=== PATIENT | male | born 1965 | race African-American/Black ===

== ENCOUNTER 2018-03-02 22:55 | Emergency (ER) | payer MEDICAID ==
[~2018-03-02] VITALS: Ht 177.8 cm; Wt 118.0 kg
[~2018-03-02 22:55] MED LIST: ARIP20TA2 PO; PARO40TA PO
[2018-03-02 23:55] VITALS: BP 152/93
[2018-03-03 02:01] LABS: BASOPHILS % 1.1 % (0.0-2.0); EOSINOPHILS % 1.4 % (0.0-5.0); HEMATOCRIT. 36.6 % (42.0-52.0); HEMOGLOBIN. 12.6 g/dL (14.0-18.0); LYMPHOCYTES % 16.6 % (20.0-50.0); MEAN CORPUSCULAR HEMOGLOBIN 31.2 pg (28.0-32.0); MEAN CORPUSCULAR VOLUME 91.1 fL (80.0-94.0); MEAN PLATELET VOLUME 7.7 fl (7.4-10.4); MONOCYTES % 8.9 % (2.0-8.0); PLATELET 286 x1000/uL (130-400); RED BLOOD CELL COUNT 4.02 mill/uL (4.7-6.1); RED CELL DISTRIBUTION WIDTH 15.9 % (11.6-14.6)
[2018-03-03 02:07] LABS: CHLORIDE 101 mEq/L (98-107)
[2018-03-03 02:15] LABS: ETHANOL BLOOD < 10 mg/dL
[2018-03-03 03:18] LABS: *BENZODIAZEPINES SCREEN URINE NEGATIVE (NEGATIVE); *COCAINE SCREEN URINE PRESUMTIVE POSITIVE (NEGATIVE); METHADONE URINE SCREEN NEGATIVE (NEGATIVE)
[2018-03-03 03:19] LABS: *AMPHETAMINES SCREEN URINE PRESUMTIVE POSITIVE (NEGATIVE); *BARBITURATES SCREEN URINE NEGATIVE (NEGATIVE); CANNABINOID URINE SCREEN PRESUMTIVE POSITIVE (NEGATIVE); OPIATES URINE SCREEN NEGATIVE (NEGATIVE); PHENCYCLIDINE URINE SCREEN NEGATIVE (NEGATIVE)
== END 2018-03-03 06:00 | disposition left against medical advice (07) ==
LOC: ER 22:55
DX: F15.10 Other stimulant abuse, uncomplicated (principal); F14.10 Cocaine abuse, uncomplicated; F12.10 Cannabis abuse, uncomplicated; F45.9 Somatoform disorder, unspecified; F31.9 Bipolar disorder, unspecified; H40.9 Unspecified glaucoma; I10 Essential (primary) hypertension; F17.200 Nicotine dependence, unspecified, uncomplicated; Z59.0 Homelessness
CPT/HCPCS: 36415; 80048; 80305; 80307; 80329; 85025; 99284; G0482

== ENCOUNTER 2018-03-03 10:00 | Inpatient (IN) | payer MEDICAID ==
[~2018-03-03] VITALS: Ht 177.8 cm; Wt 118.0 kg
[2018-03-03] MEDS ORDERED: CEFTRIAXONE SODIUM 1 G/VIAL IM ONE (12:15)
[2018-03-03] MEDS ORDERED: SULFAMETHOXAZOLE/TRIMETHOPRIM 400/80MG TAB PO ONE (12:15)
[2018-03-03] MEDS ORDERED: IBUPROFEN 600MG TABLET PO ONE (12:15)
[2018-03-03] MEDS ORDERED: N PO NR ×2 (12:43)
[2018-03-03] MEDS ORDERED: SULFAMETHOXAZOLE/TRIMETHOPRIM 800/160MG TABLET PO NR (12:44)
[2018-03-03 16:31] LABS: BASOPHILS % 0.7 % (0.0-2.0); EOSINOPHILS % 1.5 % (0.0-5.0); HEMATOCRIT. 37.6 % (42.0-52.0); HEMOGLOBIN. 12.7 g/dL (14.0-18.0); LYMPHOCYTES % 15.2 % (20.0-50.0); MEAN CORPUSCULAR HEMOGLOBIN 31.1 pg (28.0-32.0); MEAN CORPUSCULAR VOLUME 91.6 fL (80.0-94.0); MEAN PLATELET VOLUME 8.5 fl (7.4-10.4); MONOCYTES % 9.1 % (2.0-8.0); NEUTROPHILS % 73.5 % (40.0-76.0); PLATELET 284 x1000/uL (130-400); RED CELL DISTRIBUTION WIDTH 15.5 % (11.6-14.6)
[2018-03-03 16:34] LABS: CHLORIDE 102 mEq/L (98-107)
[2018-03-03 16:38] LABS: INR 1.1; PARTIAL THROMBOPLASTIN TIME 28.5 sec (23.4-31.0); PROTHROMBIN TIME 10.6 sec (9.1-11.1)
[2018-03-03] MEDS ORDERED: ENOXAPARIN 120MG/0.8ML SYR SUBCUT ONE (16:45)
[2018-03-03 17:11] VITALS: BP 137/77
[2018-03-03] MEDS ORDERED: NA PHOS,M-B/NA PHOS,DI-BA ENEMA 118ML PR PRN (18:15)
[2018-03-03] MEDS ORDERED: ACETAMINOPHEN 650MG SUPP PR PRN (18:15)
[2018-03-03] MEDS ORDERED: ACETAMINOPHEN 650MG/20.3ML UDC GT PRN (18:15)
[2018-03-03] MEDS ORDERED: CLONIDINE 0.1MG TABLET PO PRN (18:15)
[2018-03-03] MEDS ORDERED: GUAIFENESIN 200MG/10ML SUGAR FREE UDC PO PRN (18:15)
[2018-03-03] MEDS ORDERED: ACETAMINOPHEN 325MG TABLET PO PRN (18:15)
[2018-03-03] MEDS ORDERED: MAGNESIUM/ALUMINUM HYDROXIDE/SIMETHICONE 30ML UDC PO PRN (18:15)
[2018-03-03] MEDS ORDERED: IPRATROPIUM/ALBUTEROL 0.5-3(2.5)MG/3ML NEB INH PRN (18:15)
[2018-03-03] MEDS ORDERED: DOCUSATE SODIUM 100MG CAPSULE PO PRN (18:15)
[2018-03-03] MEDS ORDERED: ONDANSETRON HCL 4MG/2ML INJ IV PRN (18:15)
[2018-03-03] MEDS ORDERED: HYDRALAZINE 20MG/ML VIAL IV PRN (18:15)
[2018-03-03] MEDS ORDERED: DIPHENHYDRAMINE 50MG/ML VIAL IV PRN (18:15)
[2018-03-03] MEDS ORDERED: HYDROCODONE/ACETAMINOPHEN 5/325MG TABLET PO PRN (18:15)
[2018-03-03] MEDS ORDERED: HYDRALAZINE 10 MG in SODIUM CHLORIDE 0.9% 49.5 ML IV PRN (19:00)
[2018-03-03] MEDS ORDERED: VANCOMYCIN 2,000 MG in DEXT 5% WATER 500 ML IV NR (20:30)
[2018-03-03] MEDS ORDERED: SODIUM CHLORIDE 0.9% INJ 3ML FLUSH IVF SCH (22:00)
[2018-03-04] MEDS ORDERED: APIXABAN 5 MG TABLET PO SCH (06:00)
[2018-03-11] MEDS ORDERED: APIXABAN 5 MG TABLET PO SCH (09:00)
== END 2018-03-03 19:15 | disposition left against medical advice (07) | DRG 197 ==
LOC: ER 10:26 → EDBEDREQ 13:27 → 6EST 16:47 → EDBEDREQ 16:47 → EDBEDREQTM 16:47 → ENRESERV 16:48
PROVIDERS: ADMIT Family Medicine; ATTEND Family Medicine
DX: I82.412 Acute embolism and thrombosis of left femoral vein (principal); F17.200 Nicotine dependence, unspecified, uncomplicated; F31.9 Bipolar disorder, unspecified; H40.9 Unspecified glaucoma; I10 Essential (primary) hypertension; Z79.899 Other long term (current) drug therapy
CPT/HCPCS: 36415; 71045; 80053; 85025; 85610; 85730; 86850; 86900; 87040; 93005; 93970; 96372; 99285; J0696; J1650; J3370; J7060

== ENCOUNTER 2018-03-04 05:15 | Inpatient (IN) | payer MEDICAID ==
[~2018-03-04] VITALS: Ht 172.7 cm; Wt 117.9 kg
[2018-03-04] MEDS ORDERED: ENOXAPARIN 100MG/ML SYR SUBCUT ONE (07:15)
[2018-03-04] MEDS ORDERED: WARFARIN SODIUM 5MG TABLET PO ONE (07:45)
[2018-03-04 08:22] LABS: BASOPHILS % 1.1 % (0.0-2.0); HEMATOCRIT. 35.2 % (42.0-52.0); HEMOGLOBIN. 11.9 g/dL (14.0-18.0); LYMPHOCYTES % 21.2 % (20.0-50.0); MEAN CORPUSCULAR HEMOGLOBIN 30.9 pg (28.0-32.0); MEAN CORPUSCULAR VOLUME 91.5 fL (80.0-94.0); MEAN PLATELET VOLUME 7.9 fl (7.4-10.4); MONOCYTES % 8.6 % (2.0-8.0); NEUTROPHILS % 67.1 % (40.0-76.0); PLATELET 256 x1000/uL (130-400); RED BLOOD CELL COUNT 3.85 mill/uL (4.7-6.1); RED CELL DISTRIBUTION WIDTH 15.7 % (11.6-14.6)
[2018-03-04 08:30] LABS: CHLORIDE 105 mEq/L (98-107)
[2018-03-04 08:32] LABS: INR 1.1; PROTHROMBIN TIME 10.6 sec (9.1-11.1)
[2018-03-04 10:09] LABS: CLARITY URINE CLEAR (CLEAR); COLOR URINE DARK YELLOW (YELLOW); KETONES URINE 1+ (NEGATIVE); LEUKOCYTE ESTERASE URINE NEGATIVE (NEGATIVE); NITRITE URINE NEGATIVE (NEGATIVE); OCCULT BLOOD URINE NEGATIVE (NEGATIVE); PH URINE 6.5 (4.5-8.0); PROTEIN URINE NEGATIVE (NEGATIVE); SPECIFIC GRAVITY URINE 1.024 (1.005-1.030)
[2018-03-04 15:35] VITALS: BP 134/89
[2018-03-04 15:39] VITALS: BP 134/89
[2018-03-04] MEDS ORDERED: IPRATROPIUM/ALBUTEROL 0.5-3(2.5)MG/3ML NEB INH PRN (17:00)
[2018-03-04] MEDS ORDERED: MAGNESIUM/ALUMINUM HYDROXIDE/SIMETHICONE 30ML UDC PO PRN (17:00)
[2018-03-04] MEDS ORDERED: ONDANSETRON HCL 4MG/2ML INJ IV PRN (17:00)
[2018-03-04] MEDS ORDERED: ACETAMINOPHEN 325MG TABLET PO PRN (17:00)
[2018-03-04] MEDS ORDERED: DOCUSATE SODIUM 100MG CAPSULE PO PRN (17:00)
[2018-03-04] MEDS ORDERED: CLONIDINE 0.1MG TABLET PO PRN (17:00)
[2018-03-04] MEDS: ENOXAPARIN 120MG/0.8ML SYR SUBCUT SCH (17:54)
[2018-03-04 20:00] VITALS: BP 114/70
[2018-03-04 20:47] LABS: CHLORIDE 107 mEq/L (98-107)
[2018-03-05] VITALS: BP 123/81
[2018-03-05 04:00] VITALS: BP 128/93
[2018-03-05] MEDS: ENOXAPARIN 120MG/0.8ML SYR SUBCUT SCH ×2 (06:45→17:52)
[2018-03-05 08:00] VITALS: BP 142/88
[2018-03-05 08:02] LABS: CHLORIDE 103 mEq/L (98-107)
[2018-03-05 08:18] LABS: LDL CHOLESTEROL 105 mg/dL (5-100)
[2018-03-05 08:19] LABS: HDL CHOLESTEROL 50 mg/dL (40-59); T4 FREE 1.33 ng/dL (0.76-1.46)
[2018-03-05 12:00] VITALS: BP 129/74
[2018-03-05 16:00] VITALS: BP 144/88
[2018-03-05 20:00] VITALS: BP 120/77
[2018-03-05] MEDS: HYDROCODONE/ACETAMINOPHEN 5/325MG TABLET PO PRN (20:43)
[2018-03-06] VITALS: BP 133/83
[2018-03-06 04:00] VITALS: BP 133/48
[2018-03-06] MEDS: ENOXAPARIN 120MG/0.8ML SYR SUBCUT SCH (05:25)
[2018-03-06 08:00] VITALS: BP 131/86
[2018-03-06] MEDS: HYDROCODONE/ACETAMINOPHEN 5/325MG TABLET PO PRN (09:40)
[2018-03-06 10:34] VITALS: BP 131/86
[2018-03-06 12:00] VITALS: BP 112/83
== END 2018-03-06 15:45 | disposition home or self-care (01) | DRG 197 ==
LOC: ER 05:15 → 8WST 08:23 → EDBEDREQ 08:42 → ENRESERV 13:41
PROVIDERS: ADMIT Internal Medicine; ATTEND Internal Medicine
DX: I82.412 Acute embolism and thrombosis of left femoral vein (principal); E44.1 Mild protein-calorie malnutrition; E66.9 Obesity, unspecified; F12.90 Cannabis use, unspecified, uncomplicated; F14.10 Cocaine abuse, uncomplicated; I10 Essential (primary) hypertension; J44.9 Chronic obstructive pulmonary disease, unspecified; F17.210 Nicotine dependence, cigarettes, uncomplicated; D64.9 Anemia, unspecified; M19.90 Unspecified osteoarthritis, unspecified site; H40.9 Unspecified glaucoma; I25.10 Atherosclerotic heart disease of native coronary artery without angina pectoris; Z59.0 Homelessness; Z86.718 Personal history of other venous thrombosis and embolism; Z91.19 Patient's noncompliance with other medical treatment and regimen; Z68.39 Body mass index [BMI] 39.0-39.9, adult
CPT/HCPCS: 36415; 80048; 80053; 80061; 81003; 84439; 84443; 84481; 85025; 85610; 96372; 99285; J1650

== ENCOUNTER 2018-04-20 21:16 | Emergency (ER) | payer MEDICAID ==
[~2018-04-20] VITALS: Ht 177.8 cm; Wt 113.0 kg
[2018-04-20] MEDS ORDERED: KETOROLAC 30MG/ML VIAL IV STA (22:59)
[2018-04-20] MEDS ORDERED: SODIUM CHLORIDE 0.9% 1,000 ML IV ONE (22:59)
[2018-04-20] MEDS ORDERED: ONDANSETRON HCL 4MG/2ML INJ IV STA (22:59)
[2018-04-20] MEDS ORDERED: LORAZEPAM 2MG/ML CPJ IV ONE (23:00)
[2018-04-21 00:22] LABS: BASOPHILS % 1.1 % (0.0-2.0); EOSINOPHILS % 2.7 % (0.0-5.0); HEMATOCRIT. 40.1 % (42.0-52.0); HEMOGLOBIN. 13.7 g/dL (14.0-18.0); LYMPHOCYTES % 21.9 % (20.0-50.0); MEAN CORPUSCULAR HEMOGLOBIN 31.7 pg (28.0-32.0); MEAN CORPUSCULAR VOLUME 92.7 fL (80.0-94.0); MEAN PLATELET VOLUME 7.9 fl (7.4-10.4); NEUTROPHILS % 65.3 % (40.0-76.0); PLATELET 246 x1000/uL (130-400); RED BLOOD CELL COUNT 4.33 mill/uL (4.7-6.1); RED CELL DISTRIBUTION WIDTH 14.4 % (11.6-14.6)
[2018-04-21 00:25] LABS: CHLORIDE 103 mEq/L (98-107)
[2018-04-21 00:33] LABS: ETHANOL BLOOD < 10 mg/dL
[2018-04-21 00:37] LABS: CREATINE KINASE 153 IU/L (39-308); INR 1.1; PARTIAL THROMBOPLASTIN TIME 29.4 sec (23.4-31.0); PROTHROMBIN TIME 10.6 sec (9.1-11.1)
[2018-04-21 01:27] LABS: *AMPHETAMINES SCREEN URINE PRESUMTIVE POSITIVE (NEGATIVE); *BARBITURATES SCREEN URINE NEGATIVE (NEGATIVE); *BENZODIAZEPINES SCREEN URINE NEGATIVE (NEGATIVE); *COCAINE SCREEN URINE PRESUMTIVE POSITIVE (NEGATIVE); METHADONE URINE SCREEN NEGATIVE (NEGATIVE); OPIATES URINE SCREEN PRESUMTIVE POSITIVE (NEGATIVE)
[2018-04-21 01:28] LABS: CANNABINOID URINE SCREEN PRESUMTIVE POSITIVE (NEGATIVE); PHENCYCLIDINE URINE SCREEN NEGATIVE (NEGATIVE)
[2018-04-21 08:05] LABS: BASOPHILS % 0.9 % (0.0-2.0); EOSINOPHILS % 2.7 % (0.0-5.0); HEMATOCRIT. 37.7 % (42.0-52.0); HEMOGLOBIN. 12.7 g/dL (14.0-18.0); LYMPHOCYTES % 19.8 % (20.0-50.0); MEAN CORPUSCULAR HEMOGLOBIN 31.5 pg (28.0-32.0); MEAN CORPUSCULAR VOLUME 93.5 fL (80.0-94.0); MONOCYTES % 8.6 % (2.0-8.0); PLATELET 220 x1000/uL (130-400); RED BLOOD CELL COUNT 4.03 mill/uL (4.7-6.1); RED CELL DISTRIBUTION WIDTH 14.4 % (11.6-14.6)
[2018-04-21 08:08] LABS: CHLORIDE 105 mEq/L (98-107)
[2018-04-21 08:13] LABS: ETHANOL BLOOD < 10 mg/dL
[2018-04-21 12:00] VITALS: BP 142/100
== END 2018-04-21 13:47 | disposition home or self-care (01) ==
LOC: ER 23:19
DX: R20.2 Paresthesia of skin (principal); T40.5X1A Poisoning by cocaine, accidental (unintentional), initial encounter; T40.7X1A Poisoning by cannabis (derivatives), accidental (unintentional), initial encounter; T43.621A Poisoning by amphetamines, accidental (unintentional), initial encounter; F31.9 Bipolar disorder, unspecified; F20.9 Schizophrenia, unspecified; F17.200 Nicotine dependence, unspecified, uncomplicated; Y92.9 Unspecified place or not applicable; Z59.0 Homelessness
CPT/HCPCS: 36415; 80053; 80305; 82550; 82962; 83880; 84484; 85025; 85610; 85730; 93005; 96374; 96375; 99285; G0482; J1885; J2060; J2405; J7030

== ENCOUNTER 2020-02-10 10:10 | Inpatient (IN) | payer MEDICAID ==
[~2020-02-10] VITALS: Ht 177.8 cm; Wt 134.4 kg
[2020-02-10] MEDS ORDERED: NITROGLYCERIN 0.4MG TABLET SL SL ONE (11:00)
[2020-02-10 12:15] LABS: BASOPHILS % 0.6 % (0.0-2.0); EOSINOPHILS % 0.9 % (0.0-5.0); HEMATOCRIT. 39.2 % (42.0-52.0); HEMOGLOBIN. 13.2 g/dL (14.0-18.0); LYMPHOCYTES % 15.4 % (20.0-50.0); MEAN CORPUSCULAR HEMOGLOBIN 30.7 pg (28.0-32.0); MEAN CORPUSCULAR VOLUME 91.4 fL (80.0-94.0); MEAN PLATELET VOLUME 8.4 fl (7.4-10.4); MONOCYTES % 9.1 % (2.0-8.0); PLATELET 312 x1000/uL (130-400); RED BLOOD CELL COUNT 4.29 mill/uL (4.7-6.1); RED CELL DISTRIBUTION WIDTH 15.1 % (11.6-14.6)
[2020-02-10 12:16] LABS: CHLORIDE 106 mEq/L (98-107)
[2020-02-10] MEDS ORDERED: ASPIRIN 81MG TABLET PO ONE (13:15)
[2020-02-10 15:55] VITALS: BP_SYST 154; BP_SYST 159; BP_DIAS 96
[2020-02-10] MEDS ORDERED: METO25TA6 PO (16:57)
[2020-02-10] MEDS ORDERED: LISI-604 PO (16:57)
[2020-02-10] MEDS ORDERED: QUET100T PO (16:57)
[2020-02-10] MEDS ORDERED: NITROGLYCERIN 0.4MG TABLET SL SL PRN (17:45)
[2020-02-10] MEDS ORDERED: HYDROCODONE/ACETAMINOPHEN 5/325MG TABLET PO PRN (17:45)
[2020-02-10] MEDS ORDERED: ALBUTEROL 6.7GM HFA INHALER ORI PRN (17:45)
[2020-02-10] MEDS: DEXAMETHASONE 2MG TABLET PO SCH (18:20)
[2020-02-10 20:00] VITALS: BP 168/97
[2020-02-10] MEDS: ENOXAPARIN 40MG/0.4ML SYR SUBCUT SCH (20:29)
[2020-02-10] MEDS: AZITHROMYCIN 500 MG in DEXT 5% WATER 250 ML IV SCH (20:29)
[2020-02-10] MEDS: METOPROLOL TARTRATE 25MG TABLET PO SCH (20:30)
[2020-02-10] MEDS: FAMOTIDINE 20MG TABLET PO SCH (20:30)
[2020-02-10] MEDS: QUETIAPINE FUMARATE 50MG TABLET PO SCH (20:30)
[2020-02-11] VITALS (7 sets, daily range): BP systolic 125–158; BP diastolic 50–108
[2020-02-11] MEDS ORDERED: IPRATROPIUM/ALBUTEROL 0.5-3(2.5)MG/3ML NEB HHN PRN (09:15)
[2020-02-11] MEDS: FAMOTIDINE 20MG TABLET PO SCH ×2 (10:31→21:03)
[2020-02-11] MEDS: ASPIRIN 325MG EC TABLET PO SCH (10:32)
[2020-02-11] MEDS: METOPROLOL TARTRATE 25MG TABLET PO SCH (10:32)
[2020-02-11] MEDS: LISINOPRIL 20MG TABLET PO SCH (10:34)
[2020-02-11] MEDS: DEXAMETHASONE 2MG TABLET PO SCH (10:34)
[2020-02-11] MEDS: ENOXAPARIN 40MG/0.4ML SYR SUBCUT SCH ×2 (10:35→21:03)
[2020-02-11] MEDS ORDERED: ALBU18HF2 IH (12:54)
[2020-02-11] MEDS ORDERED: GUAI600T26 MT (13:30)
[2020-02-11] MEDS: QUETIAPINE FUMARATE 50MG TABLET PO SCH (21:03)
[2020-02-11] MEDS: AZITHROMYCIN 500 MG in DEXT 5% WATER 250 ML IV SCH (21:03)
[2020-02-12] VITALS: BP 136/65
[2020-02-12 04:00] VITALS: BP 126/67
[2020-02-12 08:00] VITALS: BP 140/80
[2020-02-12] MEDS: ENOXAPARIN 40MG/0.4ML SYR SUBCUT SCH (08:50)
[2020-02-12] MEDS: FAMOTIDINE 20MG TABLET PO SCH (08:50)
[2020-02-12] MEDS: DEXAMETHASONE 2MG TABLET PO SCH (08:50)
[2020-02-12] MEDS: ASPIRIN 325MG EC TABLET PO SCH (08:50)
[2020-02-12] MEDS: LISINOPRIL 20MG TABLET PO SCH (09:16)
[2020-02-12 12:00] VITALS: BP 144/71
[2020-02-12 12:30] VITALS: BP 144/71
[2020-02-12 16:00] VITALS: BP 140/52
[2020-02-12] MEDS ORDERED: AZITHROMYCIN 500 MG TABLET PO SCH (21:00)
== END 2020-02-12 18:50 | disposition home or self-care (01) | DRG 199 ==
LOC: ER 10:10 → 7WST 12:22 → EDBEDREQ 12:26 → EDBEDREQTM 12:26 → ENRESERV 13:45 → 7WST 16:39 → 8WST 02-11 01:54
PROVIDERS: ADMIT Internal Medicine; ATTEND Internal Medicine
DX: I16.0 Hypertensive urgency (principal); M94.0 Chondrocostal junction syndrome [Tietze]; M19.90 Unspecified osteoarthritis, unspecified site; I10 Essential (primary) hypertension; F20.9 Schizophrenia, unspecified; J06.9 Acute upper respiratory infection, unspecified; E66.9 Obesity, unspecified; Z86.718 Personal history of other venous thrombosis and embolism; Z71.3 Dietary counseling and surveillance; Z59.0 Homelessness; Z79.899 Other long term (current) drug therapy; Z68.41 Body mass index [BMI] 40.0-44.9, adult; Z86.19 Personal history of other infectious and parasitic diseases
CPT/HCPCS: 36415; 71045; 80053; 83605; 83880; 84484; 85025; 86850; 86900; 87426; 93005; 97162; 97165; 97535; 99285; J0456; J1650; J7060; J8540

== ENCOUNTER 2020-03-22 23:47 | Emergency (ER) | payer MEDICAID ==
[~2020-03-22] VITALS: Ht 177.8 cm; Wt 150.0 kg
[~2020-03-22 23:47] MED LIST changes: +ALBU18HF2 IH; -ARIP20TA2 PO; +GUAI600T26 MT; +LISI-604 PO; -PARO40TA PO; +QUET100T PO
[2020-03-23] MEDS ORDERED: MORPHINE SULFATE 4 MG/ML CPJ (NOT FOR IM USE) IV STA (00:49)
[2020-03-23] MEDS ORDERED: ONDANSETRON HCL 4MG/2ML INJ IV STA (00:49)
[2020-03-23] MEDS ORDERED: ASPIRIN 81MG TABLET PO ONE (01:00)
[2020-03-23] MEDS ORDERED: NITROGLYCERIN OINT 1GM/INCH UDPKT TD ONE (01:00)
[2020-03-23 01:27] LABS: CHLORIDE 104 mEq/L (98-107)
[2020-03-23 01:30] LABS: BASOPHILS % 0.9 % (0.0-2.0); EOSINOPHILS % 0.9 % (0.0-5.0); HEMATOCRIT. 39.2 % (42.0-52.0); HEMOGLOBIN. 13.4 g/dL (14.0-18.0); LYMPHOCYTES % 21.6 % (20.0-50.0); MEAN CORPUSCULAR HEMOGLOBIN 31.7 pg (28.0-32.0); MEAN CORPUSCULAR VOLUME 92.9 fL (80.0-94.0); MEAN PLATELET VOLUME 7.8 fl (7.4-10.4); MONOCYTES % 8.2 % (2.0-8.0); NEUTROPHILS % 68.4 % (40.0-76.0); PLATELET 253 x1000/uL (130-400); RED BLOOD CELL COUNT 4.22 mill/uL (4.7-6.1); RED CELL DISTRIBUTION WIDTH 15.1 % (11.6-14.6)
[2020-03-23] MEDS ORDERED: IOHEXOL-350 100 ML BOTTLE ONE (03:00)
[2020-03-23 06:52] LABS: *AMPHETAMINES SCREEN URINE PRESUMTIVE POSITIVE (NEGATIVE)
[2020-03-23 06:53] LABS: *BARBITURATES SCREEN URINE NEGATIVE (NEGATIVE); *BENZODIAZEPINES SCREEN URINE NEGATIVE (NEGATIVE); *COCAINE SCREEN URINE PRESUMTIVE POSITIVE (NEGATIVE); METHADONE URINE SCREEN NEGATIVE (NEGATIVE); OPIATES URINE SCREEN PRESUMTIVE POSITIVE (NEGATIVE)
[2020-03-23 06:54] LABS: CANNABINOID URINE SCREEN PRESUMTIVE POSITIVE (NEGATIVE); PHENCYCLIDINE URINE SCREEN NEGATIVE (NEGATIVE)
[2020-03-23] MEDS ORDERED: ONDANSETRON HCL 4MG/2ML INJ IV PRN (10:15)
[2020-03-23] MEDS ORDERED: IPRATROPIUM/ALBUTEROL 0.5-3(2.5)MG/3ML NEB HHN PRN (10:15)
[2020-03-23] MEDS ORDERED: AMLODIPINE 10MG TABLET PO SCH (13:45)
[2020-03-23] MEDS: ACETAMINOPHEN 325MG TABLET PO PRN ×2 (13:51→20:06)
[2020-03-23] MEDS: ENOXAPARIN 40MG/0.4ML SYR SUBCUT SCH ×2 (13:53→21:40)
[2020-03-23 20:07] VITALS: BP 158/84
[2020-03-24] MEDS ORDERED: ASPIRIN 81MG TABLET PO SCH (09:00)
== END 2020-03-23 22:23 | disposition left against medical advice (07) ==
LOC: ER 23:47 → CANRESERV 03-23 16:21 → ENRESERV 03-23 16:21 → CANRESERV 03-23 21:53 → ER 03-23 22:23 → CANBEDREQ 03-24 14:46
DX: R07.89 Other chest pain (principal); R06.02 Shortness of breath; I10 Essential (primary) hypertension; F20.9 Schizophrenia, unspecified; F17.290 Nicotine dependence, other tobacco product, uncomplicated; F12.10 Cannabis abuse, uncomplicated; Z85.9 Personal history of malignant neoplasm, unspecified; Z79.899 Other long term (current) drug therapy
CPT/HCPCS: 36415; 71045; 71275; 80053; 80305; 83880; 84484; 85025; 93005; 96372; 96374; 96375; 99285; J1650; J2270; J2405; Q9967; Z7610

== ENCOUNTER 2020-05-29 22:27 | Emergency (ER) | payer MEDICAID ==
[~2020-05-29] VITALS: Ht 177.8 cm; Wt 132.0 kg
[2020-05-30] MEDS ORDERED: ONDANSETRON 4MG ODT PO STA (02:02)
[2020-05-30] MEDS ORDERED: ONDANSETRON 4MG ODT PO ONE (07:00)
[2020-05-30 09:06] LABS: HEMATOCRIT. 36.4 % (42.0-52.0); HEMOGLOBIN. 12.6 g/dL (14.0-18.0); MEAN CORPUSCULAR HEMOGLOBIN 32.6 pg (28.0-32.0); MEAN CORPUSCULAR VOLUME 94.2 fL (80.0-94.0); MEAN PLATELET VOLUME 7.4 fl (7.4-10.4); PLATELET 220 x1000/uL (130-400); RED BLOOD CELL COUNT 3.86 mill/uL (4.7-6.1); RED CELL DISTRIBUTION WIDTH 15.4 % (11.6-14.6)
[2020-05-30 09:15] LABS: CHLORIDE 108 mEq/L (98-107)
[2020-05-30 09:30] VITALS: BP 136/88
[2020-05-30 11:38] LABS: PLATELET ESTIMATE NORMAL
== END 2020-05-30 10:30 | disposition home or self-care (01) ==
LOC: ER 22:27
DX: R05 Cough (principal); I10 Essential (primary) hypertension; F20.9 Schizophrenia, unspecified; M19.90 Unspecified osteoarthritis, unspecified site; F12.10 Cannabis abuse, uncomplicated; Z85.46 Personal history of malignant neoplasm of prostate
CPT/HCPCS: 36415; 71045; 80053; 83690; 85025; 99284; Q0162